=== PATIENT | male | born 1965 | race Two or more races ===

== ENCOUNTER 2018-01-24 14:10 | Emergency (ER) | payer OTHER ==
[2018-01-24 14:33] VITALS: BP 108/76; PULSE 76; RESP 18; TEMP 97.6
[2018-01-24] MEDS ORDERED: PROPARACAINE 0.5% OPHTH DROPS 15 ML BTL LEFT EYE STA (15:48)
--- NOTE | 2018-01-24 16:37 | ED ---
Eye Problem HPI - General Chief complaint: Eye Problems Stated complaint: Eye injury Source: patient Mode of arrival: ambulatory Limitations: no limitations - History of Present Illness Initial comments: This a 52-year-old male with no past medical history presents today for chief complaint of left eye irritation. 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 Patient states that he was on a ladder by the [employer] when a wire hit in the eye, the surprise and he jumped from the ladder, he denies falling hitting his head or any loss consciousness or injury to extremity. Patient immediately noticed some discomfort in his left eye and some eyelid swelling. Today he had noticed that his vision seemed blurry in his left eye and decided to present to the emergency department. She denies any flashes of light, floaters, photosensitivity, photophobia, pain extra ocular movement, drainage, vision loss, diplopia. Patient denies any recent fever, chills, shortness of breath, chest pain, back pain, abdominal pain, nausea or vomiting, numbness or tingling, dysuria or hematuria, constipation or diarrhea, headaches or visual changes, or any other complaints. - Related Data Previous Rx's Medication Instructions Recorded Erythromycin Ophth Oint [Romycin 1 applic LEFT EYE QID 5 Days #1 01/24/18 Ophth Oint] tube Allergies Allergy/AdvReac Type Severity Reaction Status Date / Time No Known Allergies Allergy Verified 01/24/18 14:33 Review of Systems ROS Statement: Those systems with pertinent positive or pertinent negative responses have been documented in the HPI. ROS Other: All systems not noted in ROS Statement are negative. Constitutional: Denies: fever, chills Eyes: Reports: as per HPI, eye pain, vision change. Denies: eye discharge Respiratory: Denies: cough, dyspnea, wheezes Cardiovascular: Denies: chest pain, palpitations, dyspnea on exertion, orthopnea Endocrine: Denies: fatigue Gastrointestinal: Denies: as per HPI, nausea, vomiting, diarrhea, constipation Musculoskeletal: Denies: back pain Skin: Denies: as per HPI, rash, lesions Neurological: Denies: headache, weakness, numbness, paresthesias, confusion, abnormal gait, vertigo Past Medical History Past Medical History: No Reported History Past Surgical History: No Surgical Hx Reported Past Psychological History: No Psychological Hx Reported Smoking Status: Current every day smoker Past Alcohol Use History: None Reported Past Drug Use History: None Reported General Exam - General Exam Comments Initial Comments: General: The patient is awake and alert, in no distress, and does not appear acutely ill. Eye: VA OD 20/50 OS 20/70. +3 mm Pupils are equal, round and reactive to light , extra-ocular movements are intact. Direct and consensual response intact. No direct or consensual photophobia. No APD, or conjugate gaze. No nystagmus. There is normal conjunctiva of the right eye, minimal injection of the left eye. Mild soft tissue swelling of the left upper eyelid, no abrasions or lacerations. No signs of icterus. Extraocular eye movements intact, with no pain with extraocular motor. Visual garcia intact to confrontation in all 4 garcia of the eyes bilaterally. Slit lamp examination was performed, revealing no photophobia. No obvious foreign bodies, no cell flare. Fluorescein examination revealed negative Meagan sign, uptake at the 6 o'clock position into small locations concerning for corneal abrasion. IOP 16 both eyes. Rectal exam limited due to and no dilation, no obvious defects of the retina or vasculature bilaterally. Ears, nose, mouth and throat: There are moist mucous membranes and no oral lesions. Neck: The neck is supple, there is no tenderness or JVD. Cardiovascular: There is a regular rate and rhythm. No murmur, rub or gallop is appreciated. Respiratory: Lungs are clear to auscultation, respirations are non-labored, breath sounds are equal. No wheezes, stridor, rales, or rhonchi. Neurological: A&O x 3. CN II-XII intact, There are no obvious motor or sensory deficits. Coordination appears grossly intact. Speech is normal. Skin: Skin is warm and dry and no rashes or lesions are noted. Psychiatric: Cooperative, appropriate mood & affect, normal judgment. Limitations: no limitations Course Vital Signs 01/24/18 14:31 Temperature 97.6 F Pulse Rate 76 Respiratory 18 Rate Blood Pressure 108/76 O2 Sat by Pulse 98 Oximetry Medical Decision Making - Medical Decision Making Upon examination patient appeared comfortable, no signs of photophobia. Proparacaine drop was administered to the left eye, patient stated that this eliminated the symptoms of left eye irritation. Fluorescein exam revealed increased uptake at the 6 o'clock position in 2 areas concerning for corneal abrasion. Negative Meagan sign. At this time feel patient has a corneal abrasion, patient was evaluated in person by Dr. Alfaro who agrees the impression and plan. Patient was given erythromycin ointment to be applied 4 times a day, with ophthalmology follow-up in 24 hours patient agreed plan and was discharged in stable condition. Pt was instructed to call and make the appointment with Ophthalmology himself tonight or tomorrow morning-pt agreed and understood. Disposition Clinical Impression: Corneal abrasion, left Disposition: HOME SELF-CARE Condition: Good Instructions: Corneal Abrasion (ED) Additional Instructions: Please use medication as discussed. Please follow-up with ophthalmology in 24 hours. Please return to emergency room if the symptoms increase or worsen or for any other concerns as discussed. Prescriptions: Erythromycin Ophth Oint [Romycin Ophth Oint] 1 applic LEFT EYE QID 5 Days #1 tube Is patient prescribed a controlled substance at d/c from ED?: No Referrals: Mariano Valadez MD [STAFF PHYSICIAN] - 1-2 days None,Stated [Primary Care Provider] - 1-2 days Time of Disposition: 16:42
== END 2018-01-24 16:56 | disposition home or self-care (01) ==
LOC: EC 14:10
DX: S05.02XA Injury of conjunctiva and corneal abrasion without foreign body, left eye, initial encounter (principal); F17.200 Nicotine dependence, unspecified, uncomplicated; W22.8XXA Striking against or struck by other objects, initial encounter; W11.XXXA Fall on and from ladder, initial encounter; Y93.89 Activity, other specified; Y92.524 Gas station as the place of occurrence of the external cause; Y99.0 Civilian activity done for income or pay
CPT/HCPCS: 99283

== ENCOUNTER 2019-09-05 08:20 | Inpatient (IN) | payer OTHER ==
[2019-09-05] MEDS ORDERED: MORPHINE SULFATE 4 MG/ML SYRINGE IV STA (08:31)
[2019-09-05] MEDS ORDERED: SODIUM CHLORIDE 0.9% 1,000 ML IV STA (08:31)
[2019-09-05] MEDS ORDERED: ONDANSETRON 4 MG/2 ML VIAL IVP STA (08:31)
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
[2019-09-05 08:57] LABS: Basophils % (A) 0 %; Eosinophils # (A) 0.1 k/uL (0-0.7); Eosinophils % (A) 1 %; HCT 50.3 % (39.0-53.0); HGB 16.9 gm/dL (13.0-17.5); Lymphocytes # (A) 0.9 k/uL (1.0-4.8); Lymphocytes % (A) 6 %; MCH 26.4 pg (25.0-35.0); MCHC 33.6 g/dL (31.0-37.0); MCV 78.6 fL (80.0-100.0); Mean Platelet Volume 6.7; Monocytes # (A) 0.2 k/uL (0-1.0); Monocytes % (A) 2 %; Neutrophils # (A) 13.4 k/uL (1.3-7.7); Neutrophils % (A) 91 %; Platelet Count 321 k/uL (150-450); RBC 6.39 m/uL (4.30-5.90); RDW 12.7 % (11.5-15.5); WBC 14.8 k/uL (3.8-10.6)
[2019-09-05 09:03] LABS: ALT 36 U/L (4-49); AST 31 U/L (17-59); African American GFR (CKD) >90 (>60 ml/min/1.73 sqM); Albumin 4.8 g/dL (3.5-5.0); Alkaline Phosphatase 92 U/L (38-126); Amylase 67 U/L (30-110); Anion Gap 10 mmol/L; Blood Urea Nitrogen 21 mg/dL (9-20); Calcium 10.1 mg/dL (8.4-10.2); Carbon Dioxide 29 mmol/L (22-30); Chloride 101 mmol/L (98-107); Glucose 145 mg/dL (74-99); Non-African American GFR(CKD) >90 (>60 ml/min/1.73 sqM); Potassium 4.1 mmol/L (3.5-5.1); Sodium 140 mmol/L (137-145); Total Bilirubin 0.5 mg/dL (0.2-1.3)
--- NOTE | 2019-09-05 09:43 | CT ---
EXAMINATION TYPE: CT abdomen pelvis w con DATE OF EXAM: 09/05/2019 COMPARISON: NONE HISTORY: 54-year-old male with abdominal pain TECHNIQUE: Contiguous axial scanning of the abdomen and pelvis following administration of 100 ml Iso roro 300 IV contrast. Delayed images through the kidneys and coronal/sagittal reconstructions perform ed. CT DLP: 890.5 mGycm Automated exposure control for dose reduction was used. FINDINGS: LUNG BASES: Patchy groundglass changes at the posterior lower lungs probably prominent areas of atele ctasis. No pleural effusion. LIVER/GB: Indeterminate 2.0 cm hypodense hepatic lesion anterior mid liver remains hypodense on the d elayed kidney images with attenuation around 50 Hounsfield units, probably a complicated cyst. This l ikely reassessed with a 6 month follow-up ultrasound. Suspect some underlying fatty infiltration of t he liver. Portal venous system is patent. No biliary ductal dilatation. PANCREAS: No significant abnormality is seen. SPLEEN: No significant abnormality is seen. ADRENALS: No significant abnormality is seen. KIDNEYS: No significant abnormality is seen. BOWEL: Evidence of small bowel obstruction at approximately the mid small bowel level located just be low the aortic bifurcation in the mid lower abdomen, referred axial image 62, coronal image 43, and s agittal image 66. There is fecalization of bowel content proximal to this and small bowel loops are d ilated up to 4.0 cm with air-fluid levels, mesenteric edema and trace interloop free fluid. No free a ir or evidence of small bowel wall pneumatosis at this time. Of note, there is a small bowel malrotation with an absent normal location to the ligament of Treitz. The ileocecal valve is slightly high riding in the right mid abdomen. The colon is collapsed. No significant stool burden. MISCELLANEOUS: Multiple small supraumbilical ventral midline omental fat-containing hernias are prese nt spanning up to 7.2 cm craniocaudal, refer to sagittal image 56 with a hernia measuring up to 2.7 c m wide, refer to axial image 38. No mesenteric or retroperitoneal lymphadenopathy. PELVIS: Mild bladder wall thickening. Small fat-containing direct left inguinal hernia. No abnormal f luid collection in the pelvis or pelvic lymphadenopathy. BONES: Mild degenerative change at the hips. Mild degenerative disc disease and facet arthropathy mid to lower lumbar spine. IMPRESSION: 1. COMPLETE SMALL BOWEL OBSTRUCTION AT THE MID SMALL BOWEL LEVEL, TRANSITION POINT JUST BELOW THE AOR TIC BIFURCATION, AXIAL IMAGE 62, CORONAL IMAGE 43, SAGITTAL IMAGE 66. SMALL BOWEL LOOPS ARE DILATED U P TO 4.0 CM AND THERE IS REACTIVE MESENTERIC EDEMA AND TRACE INTERLOOP FREE FLUID. NO FREE AIR. 2. NOTE THE PRESENCE OF A SMALL BOWEL MALROTATION AN INCIDENTAL FINDING. 3. PATCHY GROUNDGLASS CHANGES IN THE POSTERIOR LOWER LUNGS LIKELY PROMINENT AREAS OF ATELECTASIS. 4. SIX-MONTH FOLLOW-UP LIVER ULTRASOUND RECOMMENDED FOR SUSPECTED MILDLY COMPLICATED 2.0 CM CYST ANTE RIOR MID LIVER. 5. MILD CIRCUMFERENTIAL BLADDER WALL THICKENING. THIS MAY BE CHRONIC FOR THE PATIENT. CORRELATE TO EX CLUDE CYSTITIS. 6. A NUMBER OF SMALL OMENTAL FAT-CONTAINING SUPRAUMBILICAL VENTRAL MIDLINE HERNIAS.
[2019-09-05] MEDS ORDERED: ONDANSETRON 4 MG/2 ML VIAL IVP PRN ×2 (09:57→11:09)
[2019-09-05] MEDS ORDERED: NALOXONE 0.4 MG/ML 1 ML VIAL IV PRN (09:57)
[2019-09-05] MEDS: SODIUM CHLORIDE 0.9% 1,000 ML IV SCH (11:41)
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
[2019-09-05] MEDS: MORPHINE SULFATE 4 MG/ML SYRINGE IV PRN ×2 (14:07→19:14)
[2019-09-05] MEDS: PIPERACILLIN-TAZOBACTAM 3.375 GM in SODIUM CHLORIDE 0.9% 100 ML IVPB SCH (15:49)
[2019-09-05] MEDS: HEPARIN SODIUM,PORCINE 5,000 UNIT/ML 1 ML VIAL SQ SCH (20:46)
[2019-09-06] MEDS: PIPERACILLIN-TAZOBACTAM 3.375 GM in SODIUM CHLORIDE 0.9% 100 ML IVPB SCH ×3 (00:48→15:57)
[2019-09-06] MEDS: SODIUM CHLORIDE 0.9% 1,000 ML IV SCH ×2 (00:48→09:08)
[2019-09-06] MEDS: MORPHINE SULFATE 4 MG/ML SYRINGE IV PRN (00:50)
[2019-09-06 01:33] LABS: Appearance,Urine Clear (Clear); Bilirubin,Urine Negative (Negative); Blood,Urine Negative (Negative); Color,Urine Yellow; Glucose,Urine (UA) Negative (Negative); Ketones,Urine 1+ (Negative); Leukocyte Esterase,Urine Negative (Negative); Mucus,Urine Rare /hpf; Nitrite,Urine Negative (Negative); Protein,Urine 1+ (Negative); RBC,Urine 4 /hpf (0-5); Squamous Epithelial Cell,Urine <1 /hpf (0-4); Urobilinogen,Urine <2.0 mg/dL (<2.0); WBC,Urine 1 /hpf (0-5)
[2019-09-06 02:23] LABS: Specific Gravity,Urine 1.048 (1.001-1.035)
[2019-09-06 06:21] LABS: Basophils % (A) 0 %; Eosinophils # (A) 0.1 k/uL (0-0.7); Eosinophils % (A) 1 %; HGB 15.2 gm/dL (13.0-17.5); Lymphocytes # (A) 2.2 k/uL (1.0-4.8); Lymphocytes % (A) 17 %; MCH 26.1 pg (25.0-35.0); MCHC 32.3 g/dL (31.0-37.0); MCV 80.8 fL (80.0-100.0); Mean Platelet Volume 6.7; Monocytes # (A) 0.7 k/uL (0-1.0); Monocytes % (A) 5 %; Neutrophils # (A) 10.1 k/uL (1.3-7.7); Neutrophils % (A) 76 %; Platelet Count 307 k/uL (150-450); RBC 5.81 m/uL (4.30-5.90); RDW 12.9 % (11.5-15.5); WBC 13.4 k/uL (3.8-10.6)
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
[2019-09-06] MEDS ORDERED: LACTATED RINGERS 1,000 ML IV ONE (07:50)
[2019-09-06] MEDS: HEPARIN SODIUM,PORCINE 5,000 UNIT/ML 1 ML VIAL SQ SCH ×2 (09:07→22:09)
[2019-09-06] MEDS: PANTOPRAZOLE 40 MG/10 ML VIAL IV SCH (09:08)
[2019-09-06] MEDS: NICOTINE 21MG/24HR PATCH TRANSDERM SCH (09:18)
--- NOTE | 2019-09-06 11:45 | P.PN ---
Subjective 54 yo M with no significant past medical history who presents with abdominal pain of one day duration associated with nausea and vomiting and found to have abdominal surgery tomorrow for small bowel obstruction with no history of previous abdominal surgeries. medical consult was requested for medical management when i saw the patient he was lying in bed comfortable with no distress , he states his abdominal pain is mild and controlled . no more vomiting with some nausea no chest pain, no dyspnea, no change in urine vitals showing blood pressure of 117/72, heart rate of 66, afebrile labs showing leukocytosis of 14.8K ,Hb 16.9, electrolytes of Na, K : WNL , and creatinine 0.9, liver enz not elevated urinalysis is concentrated sample, no infection CT of abd and pelvis: evidence of small bowel obstruction at mid small bowel level with mesenteric edema , no free air; associated with small bowel rotation with abnormal location of ligament of Treitz ; left inguinal hernia and supra- umbilical hernia complicate liver cyst in the anterior liver that needs 6 months follow up as per recommendation of radiologist 09/06/2019 Patient had 2 large bowel movements after which his symptoms of abdominal pain completely resolved surgery evaluated the patient and not recommending a any more surgical intervention patient will be started onfull liquid diet and advance as tolerated possibly of discharge tomorrow. Constitutional: Denied any fatigue denied any fever. Cardio vascular: denied any chest pain, palpitations Gastrointestinal denied any nausea vomiting Pulmonary: Denied any shortness of breath cough Neurologic denied any new focal deficits All inpatient medications were reviewed and appropriate changes in these medications as dictated in the interval history and assessment and plan. Objective - Vital Signs Vital signs: Vital Signs Temp 97.8 F 09/06/19 08:23 Pulse 58 L 09/06/19 08:23 Resp 17 09/06/19 08:23 BP 127/82 09/06/19 08:23 Pulse Ox 96 09/06/19 08:23 Intake & Output 09/05/19 09/06/19 09/06/19 18:59 06:59 18:59 Intake Total 50 Balance 50 Weight 72.575 kg Intake: IV 50 Other: Voiding Method Toilet Toilet # Voids 1 1 # Bowel Movements 1 - Exam PHYSICAL EXAMINATION: GENERAL: The patient is alert and oriented x3, not in any acute distress. Well developed, well nourished. HEENT: Pupils are round and equally reacting to light. EOMI. No scleral icterus. No conjunctival pallor. Normocephalic, atraumatic. No pharyngeal erythema. No th yromegaly. CARDIOVASCULAR: S1 and S2 present. No murmurs, rubs, or gallops. PULMONARY: Chest is clear to auscultation, no wheezing or crackles. ABDOMEN: Soft, nontender, nondistended, normoactive bowel sounds. No palpable organomegaly. MUSCULOSKELETAL: No joint swelling or deformity. EXTREMITIES: No cyanosis, clubbing, or pedal edema. NEUROLOGICAL: Gross neurological examination did not reveal any focal deficits. SKIN: No rashes. - Labs CBC & Chem 7: 09/06/19 05:53 09/05/19 08:41 Labs: Abnormal Lab Results - Last 24 Hours (Table) 09/06/19 09/06/19 Range/Units 01:00 05:53 WBC 13.4 H (3.8-10.6) k/uL Neutrophils # 10.1 H (1.3-7.7) k/uL Ur Specific [place] 1.048 H (1.001-1.035) Urine Protein 1+ H (Negative) Urine Ketones 1+ H (Negative) Urine Mucus Rare H (None) /hpf Assessment and Plan Plan: Assessment and Plan Assessment: acute small bowel obstruction , patient's abdominal pain resolved bowel obstruction resolved after bowel movements no surgical intervention at this time leukocytosis reactivenumber obstruction complicate liver cyst of about 2 cm , that needs follow up as outpt mall bowel rotation with abnormal location of ligament of Treitz left inguinal hernia and supra-umbilical hernia
--- NOTE | 2019-09-06 13:57 | P.PN ---
Subjective Progress Note Date: 09/06/19 CHIEF COMPLAINT: Abdominal pain HISTORY OF PRESENT ILLNESS: Patient was scheduled for exploratory laparotomy today with Dr. Martin, however patient had a large bowel movement this morning. He has had no further nausea or vomiting. Abdominal pain has resolved. His surgery was canceled. Patient examined at the bedside this afternoon with Dr. Martin. PHYSICAL EXAM: VITAL SIGNS: Reviewed. GENERAL: Well-developed in no acute distress. HEENT: No sclera icterus. Extraocular movements grossly intact. Moist buccal mucosa. Head is atraumatic, normocephalic. ABDOMEN: Soft. Nondistended. Nontender. Old midline scar noted. NEUROLOGIC: Alert and oriented. Cranial nerves II through XII grossly intact. ASSESSMENT: 1. Abdominal pain 2. Small bowel obstruction PLAN: Full liquid diet Patient continues to tolerate diet, anticipate discharge home tomorrow Nurse practitioner note has been reviewed by physician. Signing provider agrees with the documented findings, assessment, and plan of care. Objective - Vital Signs Vital signs: Vital Signs Temp 97.8 F 09/06/19 08:23 Pulse 58 L 09/06/19 08:23 Resp 17 09/06/19 08:23 BP 127/82 09/06/19 08:23 Pulse Ox 96 09/06/19 08:23 Intake & Output 09/05/19 09/06/19 09/06/19 18:59 06:59 18:59 Intake Total 880 Balance 880 Weight 72.575 kg Intake: IV 50 Intake, IV Titration 250 Amount Piperacillin-Tazobactam 3 100 .375 gm In Sodium Chloride 0.9% 100 ml @ 25 mls/hr IVPB Q8HR [facility] Rx# :[id number] Sodium Chloride 0.9% 1, 150 000 ml @ 75 mls/hr IV . [id number] [facility] Rx#:[id number] Oral 580 Other: Voiding Method Toilet Toilet # Voids 1 1 1 # Bowel Movements 1 1 - Labs CBC & Chem 7: 09/06/19 05:53 09/05/19 08:41 Labs: Abnormal Lab Results - Last 24 Hours (Table) 09/06/19 09/06/19 Range/Units 01:00 05:53 WBC 13.4 H (3.8-10.6) k/uL Neutrophils # 10.1 H (1.3-7.7) k/uL Ur Specific [place] 1.048 H (1.001-1.035) Urine Protein 1+ H (Negative) Urine Ketones 1+ H (Negative) Urine Mucus Rare H (None) /hpf
[2019-09-06 14:55] VITALS: RESP 18
[2019-09-07] MEDS: PIPERACILLIN-TAZOBACTAM 3.375 GM in SODIUM CHLORIDE 0.9% 100 ML IVPB SCH ×2 (01:28→08:39)
[2019-09-07] MEDS: SODIUM CHLORIDE 0.9% 1,000 ML IV SCH (01:28)
[2019-09-07 07:02] LABS: Basophils % (A) 0 %; Eosinophils # (A) 0.3 k/uL (0-0.7); Eosinophils % (A) 3 %; HCT 48.1 % (39.0-53.0); HGB 15.5 gm/dL (13.0-17.5); Lymphocytes % (A) 23 %; MCH 25.9 pg (25.0-35.0); MCHC 32.3 g/dL (31.0-37.0); MCV 80.2 fL (80.0-100.0); Mean Platelet Volume 6.9; Monocytes # (A) 0.5 k/uL (0-1.0); Monocytes % (A) 5 %; Neutrophils # (A) 5.8 k/uL (1.3-7.7); Neutrophils % (A) 67 %; Platelet Count 273 k/uL (150-450); RDW 12.9 % (11.5-15.5); WBC 8.7 k/uL (3.8-10.6)
[2019-09-07 07:19] VITALS: BP 129/82; PULSE 58; TEMP 98
[2019-09-07] MEDS: NICOTINE 21MG/24HR PATCH TRANSDERM SCH (08:38)
[2019-09-07] MEDS: PANTOPRAZOLE 40 MG/10 ML VIAL IV SCH (08:38)
[2019-09-07] MEDS: HEPARIN SODIUM,PORCINE 5,000 UNIT/ML 1 ML VIAL SQ SCH (08:38)
[2019-09-07] MEDS ORDERED: NICOTINE 21MG/24HR PATCH TRANSDERM SCH (09:00)
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
--- NOTE | 2019-09-07 14:40 | P.PN ---
Subjective Progress Note Date: 09/07/19 Principal diagnosis: 54 yo M with no significant past medical history who presents with abdominal pain of one day duration associated with nausea and vomiting and found to have abdominal surgery tomorrow for small bowel obstruction with no history of previous abdominal surgeries. medical consult was requested for medical management when i saw the patient he was lying in bed comfortable with no distress , he states his abdominal pain is mild and controlled . no more vomiting with some nausea no chest pain, no dyspnea, no change in urine vitals showing blood pressure of 117/72, heart rate of 66, afebrile labs showing leukocytosis of 14.8K ,Hb 16.9, electrolytes of Na, K : WNL , and creatinine 0.9, liver enz not elevated urinalysis is concentrated sample, no infection CT of abd and pelvis: evidence of small bowel obstruction at mid small bowel level with mesenteric edema , no free air; associated with small bowel rotation with abnormal location of ligament of Treitz ; left inguinal hernia and supra- umbilical hernia complicate liver cyst in the anterior liver that needs 6 months follow up as per recommendation of radiologist 09/06/2019 Patient had 2 large bowel movements after which his symptoms of abdominal pain completely resolved surgery evaluated the patient and not recommending a any more surgical intervention patient will be started onfull liquid diet and advance as tolerated possibly of discharge tomorrow. Constitutional: Denied any fatigue denied any fever. Cardio vascular: denied any chest pain, palpitations Gastrointestinal denied any nausea vomiting Pulmonary: Denied any shortness of breath cough Neurologic denied any new focal deficits 09/07/2019 Patient is seen and evaluated in follow-up today stating his abdominal pain has resolved and patient is tolerating diet. Patient denies any chest pain, shortness of breath, or palpitations. Patient is afebrile. No reports of nausea or vomiting and patient is tolerating diet as mentioned previously. Patient states he would like to go home today. Objective - Vital Signs Vital signs: Vital Signs Temp 98.0 F 09/07/19 07:00 Pulse 58 L 09/07/19 07:00 Resp 18 09/07/19 07:00 BP 129/82 09/07/19 07:00 Pulse Ox 97 09/07/19 07:00 Intake & Output 09/06/19 09/07/19 09/07/19 18:59 06:59 18:59 Intake Total 880 1760 Balance 880 1760 Intake: IV 50 Intake, IV Titration 250 700 Amount Piperacillin-Tazobactam 3 100 100 .375 gm In Sodium Chloride 0.9% 100 ml @ 25 mls/hr IVPB Q8HR [facility] Rx# :[id number] Sodium Chloride 0.9% 1, 150 600 000 ml @ 75 mls/hr IV . [id number] [facility] Rx#:[id number] Oral 580 1060 Other: Voiding Method Toilet Toilet # Voids 1 1 2 # Bowel Movements 1 1 - Exam GENERAL: The patient is alert and oriented x3, not in any acute distress. Well developed, well nourished. HEENT: Pupils are round and equally reacting to light. EOMI. No scleral icterus. No conjunctival pallor. Normocephalic, atraumatic. No pharyngeal erythema. No thyromegaly. CARDIOVASCULAR: S1 and S2 present. No murmurs, rubs, or gallops. PULMONARY: Chest is clear to auscultation, no wheezing or crackles. ABDOMEN: Soft, nontender, nondistended, normoactive bowel sounds. No palpable organomegaly. MUSCULOSKELETAL: No joint swelling or deformity. EXTREMITIES: No cyanosis, clubbing, or pedal edema. NEUROLOGICAL: Gross neurological examination did not reveal any focal deficits. SKIN: No rashes. - Labs CBC & Chem 7: 09/07/19 06:43 09/05/19 08:41 Labs: Abnormal Lab Results - Last 24 Hours (Table) 09/07/19 Range/Units 06:43 RBC 6.00 H (4.30-5.90) m/uL Assessment and Plan Assessment: acute small bowel obstruction , resolved. leukocytosis reactive, improved. White blood count is 8.7 complicated liver cyst of about 2 cm; patient will follow-up in the outpatient setting small bowel rotation with abnormal location of ligament of Treitz left inguinal hernia and supra-umbilical hernia Plan: Patient diet has been advanced to full liquid and tolerating well. Patient states his abdominal pain has resolved and is having active bowel movements. Plan is for discharge today with outpatient follow-up. Will continue to follow with surgery during hospitalization.
== END 2019-09-07 14:18 | disposition home or self-care (01) | DRG 390 ==
LOC: EC 08:20 → 4SSUR 10:55
PROVIDERS: ADMIT Surgery; ATTEND Surgery
PROC: 0D9670Z Drainage of Stomach with Drainage Device, Via Natural or Artificial Opening (ICD-10-PCS; principal; 2019-09-05)
DX: K56.601 Complete intestinal obstruction, unspecified as to cause (principal); K40.90 Unilateral inguinal hernia, without obstruction or gangrene, not specified as recurrent; K42.9 Umbilical hernia without obstruction or gangrene; K76.89 Other specified diseases of liver; F17.200 Nicotine dependence, unspecified, uncomplicated; D72.829 Elevated white blood cell count, unspecified; Z53.9 Procedure and treatment not carried out, unspecified reason
CPT/HCPCS: 36415; 74177; 80053; 81001; 82150; 83605; 83690; 85025; 96361; 96374; 96375; 99285

== ENCOUNTER → 2019-11-14 | Outpatient (CLI) | payer OTHER ==
--- NOTE | 2019-11-14 09:44 | US ---
EXAMINATION TYPE: US liver DATE OF EXAM: 11/14/2019 COMPARISON: CT 09/05/2019 CLINICAL HISTORY: 54-year-old male Lesion of liver K76.9. Follow up from prior CT TECHNIQUE: Multiple sonographic images of the right upper quadrant are obtained. FINDINGS: EXAM MEASUREMENTS: Liver Length: 14.4 cm Gallbladder Wall: 0.2 cm CBD: 0.4 cm Right Kidney: 9.5 x 4.4 x 5.1 cm Pancreas: obscured by overlying midline bowel gas Liver: attenuating, increased echogenicity, 1.7 x 1.6 x 2.1cm hypoechoic/cystic lesion anterior righ t lobe Gallbladder: wall echogenic focus with comet tail artifact Evidence for sonographic Prince's sign: no CBD: visualized portions wnl, limited by overlying bowel gas Right Kidney: wnl IMPRESSION: 1. 2.1 x 1.7 cm hypoechoic lesion anterior right liver lobe (measured 2.[address] of 09/05/2019). Pos sible complicated cyst. Given relative stability, additional ultrasound follow-up recommended in 6 mo nths. 2. Hepatic steatosis. 3. Incidental focus of benign adenomyomatosis along the gallbladder wall.
== END | disposition home or self-care (01) ==
LOC: RADUSWWP 08:54
PROVIDERS: ATTEND Internal Medicine Gastroenterology
DX: K76.0 Fatty (change of) liver, not elsewhere classified (principal); K76.89 Other specified diseases of liver
CPT/HCPCS: 76705

== ENCOUNTER 2020-07-09 09:56 | Day surgery (SDC) | payer OTHER ==
[2020-07-05 15:25] VITALS: BMI 25.7
[~2020-07-09 09:56] MED LIST: LACTATED RINGERS 1,000 ML IV SCH
[2020-07-09 10:18] VITALS: TEMP 97.8
[2020-07-09] MEDS ORDERED: LIDOCAINE 1% (10MG/ML) FOR IV START INTRADERMA ONE (10:19)
[2020-07-09] MEDS ORDERED: LACTATED RINGERS 1,000 ML IV ONE (10:19)
[2020-07-09] MEDS ORDERED: PROPOFOL 10 MG/ML 20 ML VIAL IV ONE (10:39)
[2020-07-09] MEDS ORDERED: fentaNYL (PF) 50 MCG/ML 2 ML AMP ONE (10:39)
[2020-07-09] MEDS ORDERED: MIDAZOLAM 2 MG/2 ML VIAL ONE (10:39)
[2020-07-09] MEDS ORDERED: LIDOCAINE 1% INJ 10MG/ML (20 ML MDV) ONE (10:39)
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
--- NOTE | 2020-07-09 10:52 | P.OP ---
Date of Procedure: 07/09/20 Preoperative Diagnosis: Constipation Screening colonoscopy Postoperative Diagnosis: Normal colon Procedure(s) Performed: Colonoscopy Anesthesia: MAC Surgeon: Prabhjot Martin Pathology: none sent Condition: stable Disposition: PACU Description of Procedure: PROCEDURE: The patient was placed on the endoscopy table in the lateral position. Digital rectal examination was performed which revealed no abnormalities. The prostate was symmetrical without nodules. Flexible colonoscope was then placed in the patient's anus and passed throughout the entire colon. The ileocecal valve was visualized. The cecum, ascending, transverse, descending and sigmoid colon were normal. The rectum was normal as well. There were no masses, polyps or diverticula noted in the entire colon. SUMMARY OF FINDINGS: Normal colonoscopy.
[2020-07-09 10:57] VITALS: RESP 16
[2020-07-09 11:19] VITALS: BP 119/82; PULSE 69
== END 2020-07-09 11:33 | disposition home or self-care (01) ==
LOC: ORWHC2ENDO 09:56
PROVIDERS: ATTEND Surgery
DX: K59.00 Constipation, unspecified (principal); K08.89 Other specified disorders of teeth and supporting structures; F17.210 Nicotine dependence, cigarettes, uncomplicated; Z87.828 Personal history of other (healed) physical injury and trauma; Z98.890 Other specified postprocedural states
CPT/HCPCS: 45378; J2250; J2001; J3010; J2704

== ENCOUNTER 2020-07-16 02:20 | Emergency (ER) | payer OTHER ==
[2020-07-16 02:27] VITALS: TEMP 98.4
[2020-07-16] MEDS ORDERED: MORPHINE SULFATE 4 MG/ML SYRINGE IV STA (02:50)
[2020-07-16] MEDS ORDERED: SODIUM CHLORIDE 0.9% 1,000 ML IV STA (02:50)
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
[2020-07-16 03:33] LABS: Basophils % (A) 0 %; Eosinophils # (A) 0.2 k/uL (0-0.7); Eosinophils % (A) 2 %; HCT 45.1 % (39.0-53.0); HGB 14.5 gm/dL (13.0-17.5); Lymphocytes # (A) 1.2 k/uL (1.0-4.8); Lymphocytes % (A) 11 %; MCH 25.6 pg (25.0-35.0); MCHC 32.2 g/dL (31.0-37.0); MCV 79.6 fL (80.0-100.0); Mean Platelet Volume 6.9; Monocytes # (A) 0.5 k/uL (0-1.0); Monocytes % (A) 4 %; Neutrophils # (A) 9.1 k/uL (1.3-7.7); Neutrophils % (A) 82 %; Platelet Count 292 k/uL (150-450); RBC 5.68 m/uL (4.30-5.90); RDW 13.2 % (11.5-15.5)
[2020-07-16 03:38] LABS: Amorphous Sediment,Urine Rare /hpf; Appearance,Urine Cloudy (Clear); Bilirubin,Urine Negative (Negative); Blood,Urine Negative (Negative); Color,Urine Light Yellow; Glucose,Urine (UA) Negative (Negative); Ketones,Urine Negative (Negative); Leukocyte Esterase,Urine Negative (Negative); Nitrite,Urine Negative (Negative); PH, Urine 7.5 (5.0-8.0); Protein,Urine Negative (Negative); RBC,Urine 1 /hpf (0-5); Specific Gravity,Urine 1.012 (1.001-1.035); Squamous Epithelial Cell,Urine <1 /hpf (0-4); Urobilinogen,Urine <2.0 mg/dL (<2.0); WBC,Urine 7 /hpf (0-5)
[2020-07-16 03:44] LABS: ALT 19 U/L (4-49); AST 23 U/L (17-59); African American GFR (CKD) >90 (>60 ml/min/1.73 sqM); Albumin 3.9 g/dL (3.5-5.0); Alkaline Phosphatase 53 U/L (38-126); Amylase 85 U/L (30-110); Anion Gap 8 mmol/L; Blood Urea Nitrogen 14 mg/dL (9-20); Calcium 9.2 mg/dL (8.4-10.2); Carbon Dioxide 25 mmol/L (22-30); Chloride 105 mmol/L (98-107); Glucose 113 mg/dL (74-99); Lipase 254 U/L (23-300); Non-African American GFR(CKD) >90 (>60 ml/min/1.73 sqM); Potassium 4.5 mmol/L (3.5-5.1); Sodium 138 mmol/L (137-145); Total Bilirubin 0.3 mg/dL (0.2-1.3); Total Protein 6.4 g/dL (6.3-8.2)
--- NOTE | 2020-07-16 03:51 | CT ---
EXAM: CT Abdomen and Pelvis Without Intravenous Contrast CLINICAL HISTORY: ITS.REASON CT Reason: abdominal pain TECHNIQUE: Axial computed tomography images of the abdomen and pelvis without intravenous contrast. CTDI is 7.57 mGy and DLP is 434.8 mGy-cm. This CT exam was performed using one or more of the following dose reduction techniques: automated exposure control, adjustment of the mA and/or kV according to patient size, and/or use of iterative reconstruction technique. COMPARISON: 09/05/1999 point FINDINGS: Lung bases: No mass. No consolidation. ABDOMEN: Liver: Unremarkable. Gallbladder and bile ducts: Unremarkable. Pancreas: No ductal dilation. Spleen: Unremarkable. Adrenals: Unremarkable. Kidneys and ureters: No obstructing stones. No hydronephrosis. Punctate nonobstructive stone in the left kidney. Stomach and bowel: No bowel obstruction. No bowel wall thickening. PELVIS: Appendix: No evidence of appendicitis. Bladder: No stones. Reproductive: Mildly enlarged prostate gland centrally. ABDOMEN and PELVIS: Intraperitoneal space: Unremarkable. Bones/joints: No acute fractures. Soft tissues: Unremarkable. Vasculature: No abdominal aortic aneurysm. Lymph nodes: No enlarged lymph nodes. IMPRESSION: No acute findings. Punctate nonobstructive stone in the left kidney.
[2020-07-16] MEDS ORDERED: HYDROmorphone 1 MG/ML 1 ML SYRINGE IVP STA ×2 (04:38→05:18)
[2020-07-16] MEDS ORDERED: KETOROLAC 15 MG/ML 1 ML VIAL IVP STA (04:38)
[2020-07-16] MEDS ORDERED: DIAZEPAM 5 MG/ML 2 ML INJ IVP STA (04:39)
[2020-07-16] MEDS ORDERED: DEXAMETHASONE SOD PHOSPHATE 10 MG/ML 1 ML VIAL IV STA (05:18)
[2020-07-16 06:01] VITALS: BP 129/80; PULSE 69; RESP 18
[2020-07-16] MEDS ORDERED: IBUPROFEN 600 MG STARTER PACK 4 TAB BTL PO STA (06:12)
[2020-07-16] MEDS ORDERED: ACET/COD 300 MG/30 MG STARTER PACK 6 TAB BTL PO STA (06:12)
== END 2020-07-16 06:20 | disposition home or self-care (01) ==
LOC: EC 02:20
DX: R10.9 Unspecified abdominal pain (principal); R33.9 Retention of urine, unspecified; F17.200 Nicotine dependence, unspecified, uncomplicated
CPT/HCPCS: 51798; 36415; 80053; 82150; 83605; 83690; 85025; 81001; 74176; 99284; 96374; 96375 ×4; 96376; 96361 ×3; J2270; J1100; J3360; J1170; J1885

== ENCOUNTER → 2020-08-03 | Outpatient (CLI) | payer OTHER ==
--- NOTE | 2020-08-04 04:54 | MR ---
EXAMINATION TYPE: MR lumbar spine wo con DATE OF EXAM: 08/03/2020 COMPARISON: None HISTORY: LBP, radiates into right buttock x 4 weeks Multiplanar multiecho imaging of the lumbar spine was performed without contrast. FINDINGS: Lumbar vertebra have normal alignment. There is some disc space narrowing at L4-5 and L5-S1. There is large posterior disc herniation at L4-5 and the spinal canal and sequestered along the posterior asp ect of the L5 vertebral body. This is towards the right side. There is significant compromise of the right side lateral recess. The disc herniation measures 9 x 19 mm. Lumbar nerve roots appear normal. The neural foramina appear normal. Posterior elements are intact. There is impingement on the right s tierra lumbar nerve roots due to the large right side disc herniation. There is no paraspinal mass. There is no compression fracture. I see no focal bone destruction. IMPRESSION: There is very large posterior right side L5-S1 lumbar disc herniation with sequestered fragment.
== END | disposition home or self-care (01) ==
LOC: RADMRIMAIN 18:45
PROVIDERS: ATTEND Family Medicine
DX: M51.17 Intervertebral disc disorders with radiculopathy, lumbosacral region (principal)
CPT/HCPCS: 72148

== ENCOUNTER → 2022-09-08 | Outpatient (CLI) | payer OTHER ==
--- NOTE | 2022-09-08 15:00 | CTL ---
EXAMINATION TYPE: CT Low Dose Lung DATE OF EXAM ORDERED: 09/08/2022 HISTORY: Long-term tobacco use. Lung cancer screening CT DLP: 79.[address] CTDI: 2.40 mGy Automated exposure control for dose reduction was used. SCREENING VISIT: Baseline COMPARISON: None TECHNIQUE: Low dose computed tomography scan was performed through the chest at 1 mm thick sections a nd reconstructed images in multiple planes at 1 mm and [address] DIAGNOSTIC QUALITY: Limited, but interpretable Diffuse groundglass opacity bilaterally makes evaluation suboptimal. FINDINGS: LUNG NODULES: Present, detailed below: [id number] right greater than left biapical pleural/parenchymal scarring has slightly thickened or nodular component. For reference is 3 to 4 mm nodularity peripheral left upper lobe axial image 4 2. A few thin-walled cysts in the upper lobes are present. No definitive greater than 5 mm pulmonary nodules are seen. LUNGS: COPD: Severity: Mild Fibrosis: Severity: None Lymph nodes: None Other findings: Ascending aorta measures up to 3.7 cm in diameter RIGHT PLEURAL SPACE: Effusion: None Calcification: None Thickening: None Pneumothorax: None LEFT PLEURAL SPACE: Effusion: None Calcification: None Thickening: None Pneumothorax: None HEART: Heart Size: Enlarged Coronary Calcification: None Pericardial Effusion: None OTHER FINDINGS: Upper abdomen: None Bony thorax: None Supraclavicular region: None Other: None IMPRESSION: Mosaic attenuation suggests mild diffuse edema bilaterally making evaluation slightly sub optimal. Mild emphysematous change with some parenchymal scarring. No significant greater than 5 mm p ulmonary nodules clearly seen CT LUNG RAD AND CT CHEST RECOMMENDATION: Lung-Rad 2 Benign Appearance or Behavior: Continue annual sc reening with LDCT in 12 months. S Modifier (other clinically significant findings): S Cardiomegaly is present. This along with mosaic attenuation is suspicious for possible CHF exacerbati on. Correlate clinically.
== END | disposition home or self-care (01) ==
LOC: RADCTMAIN 13:48
PROVIDERS: ATTEND Internal Medicine
DX: Z12.2 Encounter for screening for malignant neoplasm of respiratory organs (principal); J43.9 Emphysema, unspecified; J98.4 Other disorders of lung; F17.210 Nicotine dependence, cigarettes, uncomplicated
CPT/HCPCS: 71271

== ENCOUNTER → 2022-09-22 | Outpatient (CLI) | payer OTHER ==
--- NOTE | 2022-09-22 18:15 | CA ---
Transthoracic Echo Report Name: Bienvenido Geller Age: 57 Gender: M : 1965 Exam Date: 09/22/2022 16:07 Exam Location: [place] [facility] Ht (in): 68 Wt (lb): 160 Ordering Physician: Angel Anne MD Attending/Referring Phys: Loading Machine Operator Helper Lorena Morocho RDCS Procedure CPT: Indications: J18.0 Cardiac Hx: Technical Quality: Fair Contrast 1: Total Dose (mL): Contrast 2: Total Dose (mL): MEASUREMENTS (Male / Female) Normal Values 2D ECHO LV Diastolic Diameter PLAX 4.5 cm 4.2 - 5.9 / 3.9 - 5.3 cm LV Systolic Diameter PLAX 2.9 cm IVS Diastolic Thickness 0.9 cm 0.6 - 1.0 / 0.6 - 0.9 cm LVPW Diastolic Thickness 1.2 cm 0.6 - 1.0 / 0.6 - 0.9 cm LV Relative Wall Thickness 0.5 RV Internal Dim ED PLAX 3.3 cm LA Volume 30.9 cm??? 18 - 58 / 22 - 52 cm??? M-MODE Aortic Root Diameter MM 2.7 cm LA Systolic Diameter MM 3.1 cm LA Ao Ratio MM 1.1 AV Cusp Separation MM 2.0 cm DOPPLER LVOT Peak Velocity 96.6 cm/s LVOT Peak Gradient 3.7 mmHg LVOT Velocity Time Integral 20.8 cm MV Area PHT 3.3 cm??? Mitral E Point Velocity 76.0 cm/s Mitral A Point Velocity 62.6 cm/s Mitral E to A Ratio 1.2 MV Deceleration Time 230.8 ms MV E' Velocity 8.9 cm/s Mitral E to MV E' Ratio 8.6 TR Peak Velocity 163.3 cm/s TR Peak Gradient 10.7 mmHg Right Ventricular Systolic Press 15.7 mmHg FINDINGS Left Ventricle Normal left ventricular size, wall thickness, systolic function with no obvious regional wall motion abnormalities. Normal left ventricular diastolic filling pattern for age. The ejection fraction is visually estimated at 55-60 %. Right Ventricle The right ventricle is normal in size and function. Right Atrium The right atrium is normal in size. Left Atrium The left atrium is normal in size. Mitral Valve Structurally normal mitral valve without significant stenosis or prolapse. There is no mitral regurgitation. Aortic Valve Structurally normal aortic valve without significant sclerosis or stenosis. There is no aortic regurgitation. Tricuspid Valve Structurally normal tricuspid valve without significant stenosis. Pulmonary artery systolic pressure is normal. Trace to mild tricuspid regurgitation. Pulmonic Valve Structurally normal pulmonic valve without significant stenosis. There is no pulmonic regurgitation. Pericardium Normal pericardium without effusion. Aorta Normal aortic root dimension. CONCLUSIONS Normal LV systolic function ejection fraction 55-60% Previewed by: Dr. Jay Alas MD (Electronically Signed) Final Date: 22 September 2022 18:14
== END | disposition home or self-care (01) ==
LOC: RADECHMAIN 16:02
PROVIDERS: ATTEND Internal Medicine
DX: J81.0 Acute pulmonary edema (principal)
CPT/HCPCS: 93306

== ENCOUNTER → 2022-12-02 | Outpatient (CLI) | payer OTHER ==
--- NOTE | 2022-12-03 05:29 | MR ---
EXAMINATION TYPE: MR shoulder RT wo con DATE OF EXAM: 12/02/2022 COMPARISON: None. HISTORY: Rt shoulder pain TECHNIQUE: Multiplanar, multisequence imaging of the right shoulder is performed without contrast. FINDINGS: Rotator Cuff: Increased signal along the supraspinatus tendon with large retracted tear involving the majority of the anterior fibers measuring 1.7 cm AP diameter sagittal image 26. Infraspinatus tendon is intact. Subscapularis tendon intact. Rotator cuff muscle bulk preserved. Acromioclavicular Joint: Mild to moderate narrowing and capsular hypertrophy. No significant spurring . Glenohumeral Joint: Moderate size joint effusion. No significant spurring. Labrum: The labrum appears grossly intact given limitation of non-arthrogram study. Biceps Tendon: The long head of biceps appears at least partially subluxed medially with central incr eased signal axial image 12 for reference. Intracapsular portion not well seen and may be torn. Bone marrow signal: No focal abnormal marrow signal is appreciated. Other: No additional significant abnormality is appreciated. IMPRESSION: 1. Significant retracted tear of supraspinatus tendon. 2. Subluxation and at least partial tearing of the long head of biceps tendon. Full-thickness retract ed tear not excluded. 3. Moderate to large size glenohumeral joint effusion.
== END | disposition home or self-care (01) ==
LOC: RADMRIMAIN 18:23
PROVIDERS: ATTEND Internal Medicine
DX: M75.111 Incomplete rotator cuff tear or rupture of right shoulder, not specified as traumatic (principal); M25.411 Effusion, right shoulder

== ENCOUNTER → 2023-01-07 | Outpatient (CLI) | payer OTHER ==
[2023-01-07 22:20] LABS: Basophils # (A) 0.05 X 10*3/uL (0.00-0.10); Basophils % (A) 0.9 %; Eosinophils # (A) 0.22 X 10*3/uL (0.04-0.35); Eosinophils % (A) 3.8 %; HGB 14.5 d/dL (13.0-17.0); Lymphocytes % (A) 27.6 %; MCH 26.2 pg (27.0-32.0); MCHC 31.5 d/dL (32.0-37.0); MCV 83.2 FL (80.0-97.0); Mean Platelet Volume 9.7 FL (9.5-12.2); Monocytes # (A) 0.57 X 10*3/uL (0.20-1.00); Monocytes % (A) 9.8 %; NRBC Per 100 WBC 0 X 10*3/uL (0.00-0.01); Neutrophils # (A) 3.35 X 10*3/uL (1.80-7.70); Neutrophils % (A) 57.7 %; Platelet Count 318 X 10*3/uL (140-440); RBC 5.53 X 10*6/uL (4.40-5.60); RDW 13.5 % (11.5-14.5)
[2023-01-08 04:28] LABS: Anion Gap 12.7 mmol/L (4.00-12.00); Carbon Dioxide 23.3 mmol/L (21.6-31.8); Potassium 4.3 mmol/L (3.5-5.5)
== END | disposition home or self-care (01) ==
LOC: LABWHC1 14:28
PROVIDERS: ATTEND Orthopaedic Surgery
DX: Z01.812 Encounter for preprocedural laboratory examination (principal); M75.41 Impingement syndrome of right shoulder; I44.4 Left anterior fascicular block; R94.31 Abnormal electrocardiogram [ECG] [EKG]
CPT/HCPCS: 36415; 80051; 85025; 93005

== ENCOUNTER → 2023-01-21 | Day surgery (SDC) | payer OTHER ==
[2023-01-13 15:33] VITALS: BMI 23.8
[~2023-01-21] MED LIST changes: +DEXAMETHASONE SOD PHOSPHATE 10 MG/ML 1 ML VIAL ONE; +DEXAMETHASONE SOD PHOSPHATE 4 MG/ML 1 ML VIAL IV ONE; +DEXAMETHASONE SOD PHOSPHATE 4 MG/ML 1 ML VIAL ONE; +HYDROmorphone 0.5 MG/0.5 ML SYRINGE IVP PRN; +LIDOCAINE 1% (10MG/ML) FOR IV START INTRADERMA PRN; +LIDOCAINE 2% INJ 20 MG/ML (2 ML VIAL) ONE; +MIDAZOLAM 2 MG/2 ML VIAL IVP ONE; +ONDANSETRON 4 MG/2 ML VIAL IVP ONE; +PHENYLEPHRINE-0.9% NACL SYG 1,000 MCG/10 ML SYRINGE ONE; +PROPOFOL 10 MG/ML 20 ML VIAL IV ONE; +ROPIVACAINE 5 MG/ML 30 ML VIAL ONE; +SUCCINYLCHOLINE CHLORIDE 200 MG/10 ML VIAL IV ONE; +droPERidol 5 MG/2 ML VIAL IVP ONE; +fentaNYL (PF) 50 MCG/ML 2 ML AMP ONE
--- NOTE | 2023-01-21 07:32 | HP ---
HISTORY AND PHYSICAL DATE OF SURGERY: 01/21/2023. HISTORY OF PRESENT ILLNESS: Bienvenido Geller is a 57-year-old gentleman, seen with progressive right shoulder pain. We discussed options for treatment. He elected to proceed with right shoulder arthroscopy. Consent regarding the procedure was obtained. PAST MEDICAL HISTORY: Noncontributory. PAST SURGICAL HISTORY: Noncontributory. DAILY MEDICATIONS: None. ALLERGIES: None. SOCIAL HISTORY: He smokes cigarettes. PHYSICAL EVALUATION OF RIGHT SHOULDER: Flexion is 140 degrees, abduction is 110 degrees, external rotation is 50 degrees with significant pain and weakness. Tenderness along the anterolateral acromion and rotator cuff insertion. Impingement is positive at 90 degrees. Drop-arm sign is positive. Cross-body adduction sign is positive. Distal neurovascular exam is intact. IMAGING STUDIES: Right shoulder radiographs revealed a type 2 acromion and cystic changes of the tuberosity. MRI right shoulder revealed a large rotator cuff tendon tear along with partial biceps tendon tear and effusion. IMPRESSION: 1. Right shoulder impingement with rotator cuff tear. 2. Right shoulder acromioclavicular joint osteoarthritis. 3. Right shoulder partial long head biceps tendon tear. PLAN: Right shoulder arthroscopy with subacromial decompression, arthroscopic rotator cuff repair, biceps tenodesis versus tenotomy and debridement with possible Laura procedure. MMODL / IJN: [id number] /
[2023-01-21 07:47] VITALS: TEMP 97
--- NOTE | 2023-01-21 11:34 | P.OP ---
Date of Procedure: 01/21/23 Preoperative Diagnosis: Right shoulder impingement Postoperative Diagnosis: 1. Right shoulder rotator cuff tear 2. Right shoulder impingement 3. Right shoulder acromioclavicular joint osteoarthritis 4. Right shoulder partial long head biceps tendon tear 5. Right shoulder superficial labral tear Procedure(s) Performed: 1. Right shoulder arthroscopic rotator cuff repair 2. Right shoulder arthroscopic subacromial decompression 3. Right shoulder arthroscopic Laura procedure 4. Right shoulder arthroscopic biceps tenotomy 5. Right shoulder arthroscopic debridement labral tear Implants: 3Arthrex 4.75 swivel lock anchors 1Arthrex 5.5 swivel lock anchor Anesthesia: GETA, regional (Interscalene block) Surgeon: Ced Coker Drug Worker #1: Newton Cheney Estimated Blood Loss (ml): 11 Pathology: none sent Condition: stable Disposition: PACU Indications for Procedure: 57-year-old gentleman seen with progressive right shoulder pain. After treatment options were discussed, he elected to proceed with arthroscopy. Operative Findings: See description of procedure Description of Procedure: Patient underwent an interscalene block by department of anesthesia. The patient was then taken to the operative suite. The patient underwent a general anesthetic by the department of anesthesia. The patient was placed into a lateral position and secured. There was appropriate padding of the bony prominence. Right shoulder was then prepped and draped in normal sterile orthopedic fashion. We placed the extremity in 10 pounds of longitudinal traction. A posterior incision was now made for a posterior working portal site. The trocar and cannula were inserted into the glenohumeral joint. Arthroscopy was initiated. Spinal needle was now inserted anteriorly, to ascertain the anterior working portal site. An incision was now made in that area, a trocar was inserted followed by a probe. There was substantial partial tearing long head biceps tendon. There was superficial fraying/tearing of the superior labrum. The remainder labrum appeared stable. There were mild grade 1 chondral malacia changes along the anterior aspect of the glenoid fossa otherwise andchondralmalaciawaspresent.Iperformedanarthroscopicbicepstenotomy.Idebridedout thesuperficiallabraltear.Theresiduallabrumappearedstable.Instrumentswerenowremov edfromglenohumeraljoint. Utilizing the posterior working portal site, the trocar and cannula were inserted into the subacromial space. Arthroscopy initiated. I made an incision 2 fingerbreadths lateral to the acromion. I introduced my trocar followed by my ArthroCare ablator. I now began ablating thick subacromial bursal tissue, which exposed the undersurface of the anterior acromion. There was diminished subacromial space. There was a very prominent anterior acromion. A motorized bur was introduced and a subacromial decompression was performed. I also excised some osteophytes off the inferior aspect of the distal clavicle. The AC joint was visualized and noted to be fairly arthritic. The motorized bur was introduced in the anterior portal site and a Laura procedure was performed without difficulty, decompressing the AC joint nicely. I turned my attention to the rotator cuff. There was a 3 cm rotator cuff tear. I debrided the margins getting down to stable tendon tissue. I introduced my motorized bur and abraded the footprint area, getting some petechial bleeding. I now made an accessory portal site off the lateral aspect of the acromion. I punched 2 holes medial for medial row fixation with the assistance of Edward MUNIZ carefully tapping the punch with a mallet as I held the punch and the camera. I now introduced both anchors into the pre-punched holes and Edward MUNIZ tapped them with the mallet as I held anchors and the camera. Edward MUNIZ now screwed the anchors in place a while I held the anchor guide and camera. All 8 limbs of suture were now passed through good bites of rotator cuff tendon. I now punched 2 holes for lateral row fixation again I held the punch and camera while Edward MUNIZ used a mallet to tap in the punch. We now passed sutures through both anchors and individually I introduced the anchors into the pre-punch holes I held the anchor guide in position with one hand holding the camera with the other hand while Edward MUNIZ tensioned the sutures and screwed in the anchors one at a time. All residual suture limbs were now clipped. We had good compression of the tendon along the entire footprint. Instruments now removed from the portal sites. All portal sites were approximated with nylon suture. Sterile dressings were applied followed by a shoulder immobilizer. Newton MUNIZ assisted in this complex case. The patient was awakened, transferred to a bed, and taken to recovery in stable condition.
[2023-01-21 12:32] VITALS: RESP 16
[2023-01-21 12:40] VITALS: BP 128/79; PULSE 65
--- NOTE | 2023-01-21 12:42 | P.ANPRN ---
Procedure Note - Anesthesia - Nerve Block Performed Right Interscalene Single Time Out Performed: Yes Date of Procedure: 01/21/23 Procedure Start Time: :15 Procedure Stop Time: :19 Location of Patient: PreOp Indication: Acute Post-Operative Pain, Requested by Surgeon Sedation Type: Sedate with meaningful contact maintained Preparation: Sterile Prep Position: Supine Needle Types: Pajunk Needle Gauge: 21 Ultrasound used to visualize needle placement: Yes Ultrasound used to observe medication spread: Yes Blood Aspirated: No Pain Paresthesia on Injection Noted: No Resistance on Injection: Normal Image Stored and Saved: Yes Events: Uneventful and Well Tolerated (Ropivacaine 0.5% 20 mL plus dexamethasone 4 mg)
== END | disposition home or self-care (01) ==
LOC: OR 07:17
PROVIDERS: ATTEND Orthopaedic Surgery
DX: M75.101 Unspecified rotator cuff tear or rupture of right shoulder, not specified as traumatic (principal); M75.41 Impingement syndrome of right shoulder; M19.011 Primary osteoarthritis, right shoulder; S46.111A Strain of muscle, fascia and tendon of long head of biceps, right arm, initial encounter; G89.18 Other acute postprocedural pain; F17.210 Nicotine dependence, cigarettes, uncomplicated; Z79.899 Other long term (current) drug therapy
CPT/HCPCS: 64415; 29827; 29826; 29824; C1894; C1713; J2250; J0330; J1100 ×2; J2405; J0690; J3010; J2795; J2704; J2001; J2371

== ENCOUNTER → 2024-04-25 | Outpatient (CLI) | payer BC, OTHER ==
--- NOTE | 2024-04-25 12:45 | XR ---
EXAMINATION TYPE: XR chest 2V DATE OF EXAM: 04/25/2024 12:37 PM COMPARISON: None CLINICAL INDICATION: Male, 58 years old with history of Z0000 SOB; TECHNIQUE: XR chest 2V Frontal and lateral views of the chest. FINDINGS: Lungs/Pleura: There is no evidence of pleural effusion, focal consolidation, or pneumothorax. Pulmonary vascularity: Unremarkable. Heart/mediastinum: Cardiomediastinal silhouette is unremarkable. Musculoskeletal: No acute osseous pathology. IMPRESSION: No acute cardiopulmonary disease/process. [facility], , 04/25/2024 12:43 PM
[2024-04-25 15:13] LABS: Creatinine,Urine Random 112.1 mg/dL; Protein/Creatinine Ratio,Urine 0.08
[2024-04-25 15:43] LABS: Appearance,Urine Clear (Clear); Bilirubin,Urine Negative (Negative); Blood,Urine Negative (Negative); Color,Urine Yellow (Yellow); Ketones,Urine Negative (Negative); Nitrite,Urine Negative (Negative); Specific Gravity,Urine 1.017 (1.001-1.030); Urobilinogen,Urine 0.2 E.U./DL
[2024-04-25 15:46] LABS: Basophils # (A) 0.04 X 10*3/uL (0.00-0.10); Basophils % (A) 0.6 %; Eosinophils # (A) 0.22 X 10*3/uL (0.04-0.35); Eosinophils % (A) 3.3 %; HCT 46.3 % (39.6-50.0); HGB 14.6 g/dL (13.0-17.0); Lymphocytes # (A) 1.51 X 10*3/uL (0.90-5.00); Lymphocytes % (A) 22.6 %; MCH 26.3 pg (27.0-32.0); MCHC 31.5 g/dL (32.0-37.0); MCV 83.4 FL (80.0-97.0); Mean Platelet Volume 9.8 FL (9.5-12.2); Monocytes # (A) 0.53 X 10*3/uL (0.20-1.00); Monocytes % (A) 7.9 %; NRBC Per 100 WBC 0 X 10*3/uL (0.00-0.01); Neutrophils # (A) 4.36 X 10*3/uL (1.80-7.70); Neutrophils % (A) 65.3 %; Platelet Count 266 X 10*3/uL (140-440); RBC 5.55 X 10*6/uL (4.40-5.60); RDW 14.4 % (11.5-14.5); WBC 6.68 X 10*3/uL (4.50-10.00)
[2024-04-25 16:02] LABS: Erythrocyte Sedimentation Rate 15 mm/Hr (0-20)
[2024-04-25 16:44] LABS: % Iron Saturation 12.03 (15.00-50.00); Chol/HDL Ratio 3.18 Ratio; Creatine Kinase 222 U/L (35-257); Ferritin 74.5 ng/mL (22.0-322.0); Iron 35 UG/DL (65-175); LDL Cholesterol,Calculated 101.3 mg/dL (0.0-131.0); Magnesium 2.1 mg/dL (1.5-2.4); Phosphorus 3.3 mg/dL (2.4-5.1); Prostate Specific Antigen 2.08 ng/mL (0.000-3.500); Total Iron Binding Capacity 291 UG/DL (228-460); Uric Acid 4.8 mg/dL (3.7-8.7); VLDL Calculation 13.78 mg/dL (5.00-40.00)
[2024-04-25 17:01] LABS: AST 21 U/L (14-35); BUN/Creat Ratio 15.33 Ratio (12.00-20.00); Blood Urea Nitrogen 13.8 mg/dL (9.0-27.0); Calcium 9.5 mg/dL (8.7-10.3); Carbon Dioxide 25.6 mmol/L (21.6-31.8); Chloride 106 mmol/L (96-109); Glucose 102 mg/dL (70-110); Potassium 4.5 mmol/L (3.5-5.5); Sodium 140 mmol/L (135-145)
[2024-04-25 17:02] LABS: ALT 16 U/L (10-49); Albumin 4.4 g/dL (3.8-4.9); Alkaline Phosphatase 86 U/L (41-126); Globulin 2.4; Total Bilirubin <0.2 mg/dL (0.3-1.2); Total Protein 6.8 g/dL (6.2-8.2)
[2024-04-25 17:04] LABS: Albumin/Globulin Ratio 1.83 Ratio (1.60-3.17)
[2024-04-25 17:44] LABS: C Reactive Protein <0.30 mg/dL (0.00-0.80)
[2024-04-25 19:18] LABS: Microalbumin Creatinine Ratio <10 mg/g Cr (0-30)
[2024-04-25 20:18] LABS: DNA Double-Stranded Negative (Negative)
[2024-04-25 21:46] LABS: Hepatitis A Antibody IgM Nonreactive (Nonreactive); Hepatitis B Core IgM Nonreactive (Nonreactive); Hepatitis B Surface Antigen Nonreactive (Nonreactive); Hepatitis C IgG Antibody Reactive (Nonreactive)
== END | disposition home or self-care (01) ==
LOC: LABWHC1 12:09
PROVIDERS: ATTEND Internal Medicine
DX: Z00.00 Encounter for general adult medical examination without abnormal findings (principal); E11.65 Type 2 diabetes mellitus with hyperglycemia; E78.5 Hyperlipidemia, unspecified; E87.8 Other disorders of electrolyte and fluid balance, not elsewhere classified; D64.9 Anemia, unspecified; N40.0 Benign prostatic hyperplasia without lower urinary tract symptoms; J44.9 Chronic obstructive pulmonary disease, unspecified; N20.0 Calculus of kidney; R80.9 Proteinuria, unspecified; R06.02 Shortness of breath; Z87.891 Personal history of nicotine dependence
CPT/HCPCS: 36415; 71046; 80053; 80061; 80074; 81003; 82043; 82306; 82550; 82570; 82728; 83036; 83540; 83550; 83735; 84100; 84153; 84156; 84443; 84550; 85025; 85652; 86038; 86140; 86225

== ENCOUNTER → 2024-05-04 | Outpatient (CLI) | payer BC ==
--- NOTE | 2024-05-05 08:38 | MR ---
EXAMINATION TYPE: MR shoulder LT wo con DATE OF EXAM: 05/04/2024 1:52 PM COMPARISON: None. CLINICAL INDICATION: Male, 58 years old with history of M25.512 L SHOULDER PAIN, Left shoulder pain x 2 years. TECHNIQUE: Multiplanar multispin echo imaging of the left shoulder was performed. FINDINGS: Rotator cuff : There is thickening and heterogeneity of the supraspinatus tendon compatible with catering associate ana paula tendinopathy. Small focal intrasubstance tear noted as well as small partial undersurface tear at the critical zone. No evidence for full-thickness tear. Remaining constituents of the rotator cuff a re intact. Bursa: No bursal effusion or thickening is seen. Musculature: There is no muscular tear, contusion, or atrophy. Acromioclavicular joint : Moderate AC joint arthropathy with lateral downsloping resulting in impinge ment. Osseous structures : There are no fractures or regions of abnormal bone marrow signal intensity . Long biceps tendon : The biceps tendon is normally situated within the bicipital groove. No complete or partial biceps tendon tear is present. Glenohumeral Joint fluid : There is no glenohumeral joint effusion. Cartilage and Bone : No focal hyaline cartilage defects are noted. No Hill-Sachs, reverse Hill-Sachs, or bony Bankart lesions are seen. Labrum : There are no SLAP or soft tissue Bankart lesions. No paralabral cysts are seen. OTHER FINDINGS : none IMPRESSION: 1. There is thickening and heterogeneity of the supraspinatus tendon compatible with chronic tendinop athy. Small focal intrasubstance tear noted as well as small partial undersurface tear at the critica l zone. No evidence for full-thickness tear. Subacromial impingement. [facility], , 05/05/2024 8:36 AM
== END | disposition home or self-care (01) ==
LOC: RADMRIMAIN 13:01
PROVIDERS: ATTEND Orthopaedic Surgery
DX: M75.112 Incomplete rotator cuff tear or rupture of left shoulder, not specified as traumatic (principal); M25.812 Other specified joint disorders, left shoulder

== ENCOUNTER → 2024-05-20 | Outpatient (CLI) | payer BC | END | disposition home or self-care (01) | LOC: LABWHC1 14:53 | PROVIDERS: ATTEND Internal Medicine | DX: Z53.9 Procedure and treatment not carried out, unspecified reason (principal) ==

== ENCOUNTER → 2024-06-13 | Outpatient (CLI) | payer BC ==
[2024-06-13 19:43] LABS: Hepatitis C IgG Antibody Reactive (Nonreactive)
== END | disposition home or self-care (01) ==
LOC: LABWHC1 13:10
PROVIDERS: ATTEND Internal Medicine
DX: B19.20 Unspecified viral hepatitis C without hepatic coma (principal)
CPT/HCPCS: 36415; 86803; 87522

== ENCOUNTER → 2024-06-16 | Outpatient (CLI) | payer BC ==
--- NOTE | 2024-06-16 16:58 | CTL ---
EXAMINATION TYPE: CT Low Dose Lung DATE OF EXAM: 06/16/2024 3:36 PM COMPARISON: 09/08/2022. CLINICAL INDICATION: Male, 59 years old with history of Z12.2 SCREENING LUNG CA F17.210 CURRENT SMOKE R; Current smoker 1PPD x40yrs., history of tobacco use. TECHNIQUE: Multiple axial non-contrast scans were obtained from approximately the lung apices through the upper abdomen. Coronal and sagittal reformatted images were obtained. Low dose technique was uti lized. MIP were created on a separate workstation and submitted for review. CT DLP: 78.2 mGycm, Automated exposure control for dose reduction was used. CT Contrast: Contrast used: None Oral contrast used: None FINDINGS: Lack of intravenous contrast and low dose technique limits the evaluation of the vascular and soft ti ssue structures. LUNGS: No evidence of pulmonary fibrosis. No evidence of focal consolidation, pneumothorax or pleural effusion. Centrilobular emphysema changes. Nodules: RUL: None. RML: None. RLL: None. SERENE: None. LLL: None. AIRWAY: Patent and unremarkable. HEART: Size within normal limits. MEDIASTINUM: No gross evidence of adenopathy. VASCULATURE: No aortic aneurysm. MUSCULOSKELETAL: No acute osseous abnormalities SOFT TISSUES/LYMPH NODES: Unremarkable. LOWER NECK: No significant findings. UPPER ABDOMEN: No significant findings. IMPRESSION: 1. No clinically significant pulmonary nodules. 2. Mild emphysema. CT LUNG RAD AND CT CHEST RECOMMENDATION: Lung-Rad 1 Negative: Continue annual screening with LDCT in 12 months. S Modifier (other clinically significant findings): None Recommend smoking cessation (if current smoker), or continuation of smoking cessation (if prior smoke r). Annual screening for lung cancer with low-dose computed tomography is recommended in adults ages 55 to 77 years who have a 30 pack-year smoking history and currently smoke or have quit within the pa st 15 years. Screening should be discontinued once a person has not smoked for 15 years or develops a health problem that substantially limits life expectancy or the ability or willingness to have curat mariela lung surgery. Lung rads 2021 [email or web address] [facility], , 06/16/2024 4:56 PM
== END | disposition home or self-care (01) ==
LOC: RADCTMAIN 14:40
PROVIDERS: ATTEND Internal Medicine
DX: Z12.2 Encounter for screening for malignant neoplasm of respiratory organs (principal); F17.210 Nicotine dependence, cigarettes, uncomplicated; J43.2 Centrilobular emphysema
CPT/HCPCS: 71271

== ENCOUNTER → 2024-07-05 | Outpatient (CLI) | payer BC ==
[2024-07-05 18:24] LABS: Basophils # (A) 0.04 X 10*3/uL (0.00-0.10); Basophils % (A) 0.5 %; Eosinophils # (A) 0.17 X 10*3/uL (0.04-0.35); Eosinophils % (A) 2.3 %; HCT 44.7 % (39.6-50.0); HGB 14.2 g/dL (13.0-17.0); Lymphocytes # (A) 1.39 X 10*3/uL (0.90-5.00); Lymphocytes % (A) 18.5 %; MCHC 31.8 g/dL (32.0-37.0); MCV 81.9 FL (80.0-97.0); Mean Platelet Volume 9.4 FL (9.5-12.2); Monocytes # (A) 0.63 X 10*3/uL (0.20-1.00); Monocytes % (A) 8.4 %; NRBC Per 100 WBC 0 X 10*3/uL (0.00-0.01); Neutrophils # (A) 5.26 X 10*3/uL (1.80-7.70); Platelet Count 299 X 10*3/uL (140-440); RBC 5.46 X 10*6/uL (4.40-5.60); RDW 13.9 % (11.5-14.5); WBC 7.51 X 10*3/uL (4.50-10.00)
[2024-07-05 19:13] LABS: Anion Gap 9.2 mmol/L (4.00-12.00); Carbon Dioxide 25.8 mmol/L (21.6-31.8); Potassium 4.4 mmol/L (3.5-5.5)
== END | disposition home or self-care (01) ==
LOC: LABPAT 12:54
PROVIDERS: ATTEND Orthopaedic Surgery
DX: Z01.818 Encounter for other preprocedural examination (principal); M75.42 Impingement syndrome of left shoulder; I44.4 Left anterior fascicular block; R00.1 Bradycardia, unspecified; R94.31 Abnormal electrocardiogram [ECG] [EKG]
CPT/HCPCS: 80051; 85025; 93005

== ENCOUNTER → 2024-08-22 | Outpatient (CLI) | payer BC ==
--- NOTE | 2024-08-22 15:06 | CT ---
EXAMINATION TYPE: CT abdomen pelvis w con CT DLP: 493.0 mGycm, Automated exposure control for dose reduction was used. DATE OF EXAM: 08/22/2024 2:53 PM COMPARISON: CT abdomen pelvis 03/13/2023 CLINICAL INDICATION:Male, 59 years old with history of K43.9 VENTRAL HERNIA WITHOUT OBSTRUCTION OR GA NGRE; VENTRAL HERNIA WITHOUT OBSTRUCTION OR GANGRE TECHNIQUE: Standard CT of the abdomen and pelvis following the administration of 100 cc of Isovue 3 00 IV contrast material and oral contrast. Coronal and sagittal reformats were performed. FINDINGS: LOWER CHEST: Posterior dependent subsegmental atelectasis is noted. ABDOMEN LIVER: Stable anterior right hepatic lobe 1.8 cm cyst. GALLBLADDER AND BILE DUCTS: Unremarkable. PANCREAS: Unremarkable. SPLEEN: Unremarkable. ADRENAL GLANDS: Unremarkable. KIDNEYS AND URETERS: No evidence of hydronephrosis or renal calculus. The kidneys enhance symmetrical ly. Contrast is demonstrated within both collecting systems and proximal ureters on the delayed phase . Subcentimeter left renal cyst. PELVIS BLADDER: Incompletely distended but grossly unremarkable. REPRODUCTIVE: Small bilateral hydroceles. Calcification within the penile shaft suggesting peroneal d isease ABDOMEN & PELVIS STOMACH AND BOWEL: Stomach and duodenum are unremarkable. Enteric contrast reaches the distal small b owel. Moderate colonic stool burden within the transverse colon. No focal bowel wall thickening or mckeon rrounding inflammatory changes. No evidence of bowel obstruction. PERITONEUM: No evidence of pneumoperitoneum or free fluid. VASCULATURE: No evidence of aortic aneurysm. MUSCULOSKELETAL: No acute osseous abnormalities. Mild multilevel degenerative disc disease of the low er lumbar spine. LYMPH NODES: No evidence for lymphadenopathy. SOFT TISSUE/ABDOMINAL WALL: Redemonstration of small epigastric ventral wall hernia containing mesent william fat and small mesenteric vessels. No internal inflammatory changes. Defect measures 1.6 x 2.2 cm in TV and CC dimensions (series 10, image 64). No umbilical or inguinal hernia identified. IMPRESSION: Small epigastric ventral wall hernia containing mesenteric fat and small mesenteric vessels. [facility], , 08/22/2024 3:04 PM
== END | disposition home or self-care (01) ==
LOC: RADCTMAIN 12:51
PROVIDERS: ATTEND Surgery
DX: K43.9 Ventral hernia without obstruction or gangrene (principal)
CPT/HCPCS: 74177; Q9967

== ENCOUNTER → 2024-08-23 | Outpatient (CLI) | payer BC ==
--- NOTE | 2024-08-23 10:38 | FL ---
EXAMINATION TYPE: FL barium swallow DATE OF EXAM: 08/23/2024 9:40 AM COMPARISON: None. CLINICAL INDICATION: Male, 59 years old with history of R13.10 DYSPHAGIA, Dysphagia TECHNIQUE: Esophagram was performed per the air contrast technique. The patient swallowed barium and effervescent crystals without difficulty or delay. FINDINGS: Esophageal peristalsis and motility appear to be within normal limits. There is no evidence for filling defect, mass or diverticulum. No hiatal hernia seen. Subsequently single contrast cervical esophagram was performed which fails demonstrate evidence for a spiration penetration or mass. IMPRESSION: Unremarkable study. [facility], , 08/23/2024 10:35 AM
== END | disposition home or self-care (01) ==
LOC: RADFLMAIN 08:58
PROVIDERS: ATTEND Internal Medicine
DX: R13.10 Dysphagia, unspecified (principal)
CPT/HCPCS: 74220

== ENCOUNTER → 2024-08-29 | Outpatient (CLI) | payer BC ==
--- NOTE | 2024-08-29 10:48 | XR ---
EXAMINATION TYPE: XR chest 2V DATE OF EXAM: 08/29/2024 10:35 AM COMPARISON: Chest radiographs from 04/25/2024. CLINICAL INDICATION: Male, 59 years old with history of R05.9 COUGH; TECHNIQUE: XR chest 2V Frontal and lateral views of the chest. FINDINGS: Lungs/Pleura: There is no evidence of pleural effusion, focal consolidation, or pneumothorax. Pulmonary vascularity: Unremarkable. Heart/mediastinum: Cardiomediastinal silhouette is unremarkable. Musculoskeletal: No acute osseous pathology. Other findings: None IMPRESSION: No acute cardiopulmonary disease/process. [facility], , 08/29/2024 10:45 AM
[2024-08-29 11:29] LABS: Influenza A Not Detected (Not Detectd); Influenza B Not Detected (Not Detectd); RSV Not Detected (Not Detectd)
[2024-08-29 15:11] LABS: Basophils # (A) 0.06 X 10*3/uL (0.00-0.10); Basophils % (A) 0.5 %; Eosinophils % (A) 1.5 %; HCT 44.2 % (39.6-50.0); HGB 13.7 g/dL (13.0-17.0); Lymphocytes # (A) 1.85 X 10*3/uL (0.90-5.00); Lymphocytes % (A) 14.3 %; MCH 26.1 pg (27.0-32.0); MCV 84.2 FL (80.0-97.0); Mean Platelet Volume 9.2 FL (9.5-12.2); Monocytes # (A) 1.04 X 10*3/uL (0.20-1.00); Monocytes % (A) 8.1 %; NRBC Per 100 WBC 0 X 10*3/uL (0.00-0.01); Neutrophils # (A) 9.69 X 10*3/uL (1.80-7.70); Neutrophils % (A) 75.1 %; Platelet Count 325 X 10*3/uL (140-440); RBC 5.25 X 10*6/uL (4.40-5.60); RDW 13.9 % (11.5-14.5); WBC 12.91 X 10*3/uL (4.50-10.00)
== END | disposition home or self-care (01) ==
LOC: LABWHC1 10:06
PROVIDERS: ATTEND Internal Medicine
DX: Z11.2 Encounter for screening for other bacterial diseases (principal); Z13.9 Encounter for screening, unspecified; Z11.52 Encounter for screening for COVID-19; J06.9 Acute upper respiratory infection, unspecified; J12.9 Viral pneumonia, unspecified; R05.9 Cough, unspecified
CPT/HCPCS: 36415; 71046; 85025; 87636

== ENCOUNTER 2024-09-14 05:34 | Day surgery (SDC) | payer BC ==
[2024-09-14] MEDS ORDERED: SCOPOLAMINE 1 MG/72 HR PATCH TRANSDERM ONE (05:49)
[2024-09-14 06:22] VITALS: TEMP 97.1
[2024-09-14] MEDS: IV FLUID CONTINUATION 1,000 ML IV ONE ×3 (06:30→10:13)
[2024-09-14 06:31] LABS: Glucose,Whole Blood 105 mg/dL (70-110)
[2024-09-14] MEDS: LACTATED RINGERS 1,000 ML IV SCH (06:41)
[2024-09-14] MEDS: DEXAMETHASONE SOD PHOSPHATE 4 MG/ML 1 ML VIAL IV ONE (06:42)
[2024-09-14] MEDS: ONDANSETRON 4 MG/2 ML VIAL IVP ONE (06:42)
[2024-09-14] MEDS ORDERED: MIDAZOLAM 2 MG/2 ML VIAL IV PRN (07:00)
[2024-09-14] MEDS: HEPARIN SODIUM,PORCINE 5,000 UNIT/ML 1 ML VIAL SQ PRN (07:35)
[2024-09-14] MEDS ORDERED: SUCCINYLCHOLINE CHLORIDE 200 MG/10 ML VIAL IV ONE (07:41)
[2024-09-14] MEDS ORDERED: NEOSTIGMINE 1 MG/ML 10 ML VIAL ONE (07:41)
[2024-09-14] MEDS ORDERED: fentaNYL (PF) 50 MCG/ML 2 ML AMP ONE (07:41)
[2024-09-14] MEDS ORDERED: GLYCOPYRROLATE 0.2 MG/ML 2 ML VIAL ONE (07:41)
[2024-09-14] MEDS ORDERED: PROPOFOL 10 MG/ML 20 ML VIAL IV ONE (07:41)
[2024-09-14] MEDS ORDERED: LABETALOL 5 MG/ML VIAL MDV ONE (07:41)
[2024-09-14] MEDS ORDERED: PHENYLEPHRINE-0.9% NACL SYG 1,000 MCG/10 ML SYRINGE ONE (07:41)
[2024-09-14] MEDS ORDERED: ROCURONIUM 10 MG/ML (5 ML VIAL) IV ONE (07:41)
[2024-09-14] MEDS ORDERED: LIDOCAINE 1% INJ 10MG/ML (20 ML MDV) ONE (07:41)
[2024-09-14] MEDS ORDERED: LIDOCAINE 4% LTA KIT (4 ML) TOPICAL ONE (07:41)
[2024-09-14] MEDS ORDERED: HYDROmorphone (PF) 1 MG/ML ONE (07:41)
[2024-09-14] MEDS ORDERED: MIDAZOLAM 2 MG/2 ML VIAL ONE (07:41)
[2024-09-14] MEDS: LIDOCAINE 1%-EPI 1:100,000 20 ML VIAL SQ ONE ×2 (08:00)
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
[2024-09-14] MEDS: HYDROmorphone 0.5 MG/0.5 ML SYRINGE IVP PRN (09:37)
[2024-09-14] MEDS: MEPERIDINE 25 MG/ML SYRINGE IVP STA (09:52)
[2024-09-14 10:43] VITALS: RESP 16
[2024-09-14 11:12] VITALS: BP 128/78; PULSE 78
== END 2024-09-14 11:17 | disposition home or self-care (01) ==
LOC: OR 05:34
PROVIDERS: ATTEND Surgery
DX: K43.2 Incisional hernia without obstruction or gangrene (principal); K66.0 Peritoneal adhesions (postprocedural) (postinfection)
CPT/HCPCS: 49592; S2900